=== PATIENT | female | born 1960 | race Caucasian/White ===

== ENCOUNTER 2020-03-10 15:39 | Emergency (ER) | payer OTHER, MEDICAID, SELFPAY ==
[2020-03-10 15:50] VITALS: BP 146/82; PULSE 73; RESP 18; TEMP 36.8; O2SAT 99; BMI 24.7
[2020-03-10 17:20] VITALS: BP 160/74; PULSE 58; O2SAT 100
--- NOTE | 2020-03-10 17:56 | ED_ITS ---
HPI - Headache <CONSUELO cAuna - Last Filed: 03/10/20 20:40> General Chief Complaint: Headache Stated Complaint: severe headache Time Seen by Provider: 03/10/20 17:43 Mode of arrival: Ambulatory Limitations: no limitations History of Present Illness HPI Narrative: 59yo female presents to the emergency department for a sudden onset of a severe headache during orgasm while being intimate with her partner. She states the extreme pain lasted a few minutes and then she had a dull aching headache for the next few hours. She took ibuprofen which helped relieve the pain. She denies any pain at this time, denies any other symptoms during headache such as light sensitivity, neck pain, chest pain, dizziness shortness of breath, abdominal pain, nausea, vomiting, diarrhea, or any other concerns. Patient denies any history of headaches or migraines. She denies taking any blood thinners, she denies any history of stroke or brain trauma. Patient states she takes fluoxetine. Related Data Allergies Allergy/AdvReac Type Severity Reaction Status Date / Time citalopram [CITALOPRAM] Allergy Unknown Verified 03/10/20 16:04 codeine [CODEINE] Allergy Unknown Verified 03/10/20 16:04 Sulfa (Sulfonamide Allergy Unknown Verified 03/10/20 16:04 Antibiotics) [SULFA (SULFONAMIDE ANTIBIOTICS)] Review of Systems <CONSUELO Acuna - Last Filed: 03/10/20 20:40> Review of Systems Narrative: REVIEW OF SYSTEMS: GENERAL: Denies fever or chills. HENT: No head trauma, hearing loss or sore throat. Reports headache, see HPI. EYES: No loss of vision, double vision, eye pain, or irritation. CARDIOVASCULAR: No chest pain or syncope. RESPIRATORY: No shortness of breath or cough. GASTROINTESTINAL: No nausea, vomiting, diarrhea, or constipation. GENITOURINARY: No flank pain or dysuria. MUSCULOSKELETAL: No pain, weakness, or deformities. INTEGUMENTARY: No rash. NEURO: No numbness or tingling. PSYCH: No behavior or mood changes. Patient History <CONSUELO Acuna - Last Filed: 03/10/20 20:40> Medical History No significant medical problems (Acute) Surgical History Status post myomectomy Social History Smoking Status: Never smoker Smoking Status: Never smoker alcohol intake frequency: a few times a week Alcohol type: wine Substance Use Type: does not use Exam <CONSUELO Acuna - Last Filed: 03/10/20 20:40> Initial Vital Signs Initial Vital Signs: Vital Signs Temperature 98.2 F 03/10/20 15:50 Pulse Rate 73 03/10/20 15:50 Respiratory Rate 18 03/10/20 15:50 Blood Pressure 146/82 H 03/10/20 15:50 Pulse Oximetry 99 03/10/20 15:50 PHYSICAL EXAMINATION: GENERAL: Well groomed, alert, and cooperative. Answers questions promptly and appropriately. Vital signs noted. HENT: Normocephalic. Ear canals patent. Oral mucosa is pink and moist. EYES: PERRLA, EOMIs, conjunctiva pink, sclera white, no periorbital swelling. NECK: Full ROM, no midline or spinal tenderness. CARDIOVASCULAR: S1 and S2 sounds normal. Regular rate and rhythm, no murmurs, clicks, or bruits. RESPIRATORY: Normal respiratory rate, trachea midline, airway patent. No stridor, nasal flaring or accessory muscle use. Lungs are clear in all root without wheeze, rhonchi, or crackles. MUSCULOSKELETAL: Normal gait and coordination. Equal tone and mass bilaterally. Equal strength bilaterally to upper and lower extremities. No spinal tenderness. EXTREMITIES: CMS intact. Moves all extremities. SKIN: Warm, dry, soft, appropriate color for ethnicity. No lesions, rashes, or wounds to visualized areas. NEURO: Alert and Oriented X 3. GCS: 15. Good coordination. No ataxia, or sensory deficits, or cognitive issues. Cranial Nerves: II: Visual root grossly intact. III & IV & : EOMIs V: Able to open and close jaw. VII: Facial movements symetrical. Able to close eyelids tightly. VIII: Hearing grossly intact, adequate balance. X: Uvula pronation intact. XI: Patient is able to shrug shoulders. XII: Patient is able to stick out tongue and move it side to side. PSYCH: Appropriate affect and mood. <Emmy Jefferson DO - Last Filed: 03/11/20 07:45> Initial Vital Signs Initial Vital Signs: Vital Signs Temperature 98.2 F 03/10/20 15:50 Pulse Rate 73 03/10/20 15:50 Respiratory Rate 18 03/10/20 15:50 Blood Pressure 146/82 H 03/10/20 15:50 Pulse Oximetry 99 03/10/20 15:50 Course <CONSUELO Acuna - Last Filed: 03/10/20 20:40> Course Course Narrative: Patient continues to deny head throughout her stay in the emergency department. Orders Ordered: ED Orders 03/10/20 17:54 CT head/brain wo con Stat Consultations Consultation #1: Patient staffed with Dr. Jefferson discussed test, and test results. Vital Signs Vital signs: Vital Signs - 8 hr 03/10/20 15:50 03/10/20 17:20 03/10/20 18:59 Temperature 98.2 F Pulse Rate 73 58 L 52 L Respiratory Rate 18 Blood Pressure 146/82 H 160/74 H 156/79 H Pulse Oximetry 99 100 100 <Emmy Jefferson DO - Last Filed: 03/11/20 07:45> Orders Ordered: ED Orders 03/10/20 17:54 CT head/brain wo con Stat Vital Signs Vital signs: Vital Signs - 8 hr 03/10/20 15:50 03/10/20 17:20 03/10/20 18:59 Temperature 98.2 F Pulse Rate 73 58 L 52 L Respiratory Rate 18 Blood Pressure 146/82 H 160/74 H 156/79 H Pulse Oximetry 99 100 100 MDM - Headache <CONSUELO Acuna - Last Filed: 03/10/20 20:40> Medical Records Attestation: I reviewed the patient's medical records. Lab Data Attestation: I reviewed the patient's lab results. Imaging Data CT scan - head: Radiologist's Impression: [address] [address] [address] Scan Report Signed Patient: Karley Lane [facility]#: [id number] : 1960Acct:[id number] Age/Sex: 59 / FDate of Service: 03/10/20 Loc: ED Accession Number: [id number] Procedure: CT head/brain wo con Ordering Provider: Andreea Zuleta PROCEDURE: CT HEAD/BRAIN WO CON INDICATIONS: sudden onset of headache TECHNIQUE: Noncontrast 4.5 mm thick angled axial sections acquired from the foramen magnum to the vertex, with coronal and sagittal reformats. For radiation dose reduction, the following was used: automated exposure control, adjustment of mA and/or kV according to patient size. COMPARISON: None. FINDINGS: Image quality: Excellent. CSF spaces: Basal cisterns are patent. No extra-axial fluid collections. Ventricles are normal in size and shape. Brain: No midline shift. No intracranial masses or hemorrhage. Plata-white matter interface is normal. Skull and face: Calvarium and visualized facial bones are intact, without suspicious lesions. Sinuses: Visualized sinuses and mastoids are clear. IMPRESSION: 1. No acute intracranial process. Dictated by: Sylvie Jansen M.D. on 03/10/2020 at 18:19 Approved by: Sylvie Jansen M.D. on 03/10/2020 at 18:19 [facility] Narrative Medical decision making narrative: 59-year-old female presenting to the emergency department for a headache associated with orgasm. Less concern for intracranial etiology as headache immediately started to resolve and completely to resolved by the time the patient went to the emergency department. CT negative for any concerning findings. Patient's neurological exam without focal deficits. Patient was encouraged to follow up with her primary care provider in 1-2 weeks for further evaluation. Return precautions given for new or worsening symptoms. Patient agreed to plan of care verbalized understanding. Discharge Plan Departure Patient Disposition: Home Clinical Impression: Orgasmic headache Discharge Date/Time: 03/10/20 19:03 Instructions: DI for Headache Activity Restrictions/Additional Instructions: Thank you for entrusting me with your care today. As discussed, your CT is negative for any concerning findings such as a tumor or bleeding. It is also reassuring that your headache is resolving. Please follow-up with your primary care provider in the next 1-2 weeks for further evaluation. Return to the emergency department for any new or worsening symptoms such as severe pain, vision changes, uncontrollable vomiting, chest pain, or any other concerns. Referrals: Ava Chavez MD [Primary Care Provider] - <Emmy Jefferson DO - Last Filed: 03/11/20 07:45> Cosign ED Attending Cosignature Attestation: I was immediately available in the department for consultation. Documentation has been reviewed. I agree with assessment and plan.
[2020-03-10 18:59] VITALS: BP 156/79; PULSE 52; O2SAT 100
== END 2020-03-10 19:03 | disposition home or self-care (01) ==
PROVIDERS: Emergency Provider Nurse Practitioner; PCP Family Medicine; Referring Provider Family Medicine
DX: G44.82 Headache associated with sexual activity (principal)
CPT/HCPCS: 70450; 99283; 99284

== ENCOUNTER → 2021-10-23 09:04 | Outpatient (CLI) | payer OTHER, MEDICAID, SELFPAY ==
[2021-10-23 19:52] LABS: Alanine Aminotransferase 21 IU/L (<35); Albumin 4.4 g/dL (3.5-5.0); Albumin Globulin Ratio 1.5 (1.0-2.8); Alkaline Phosphatase 53 U/L (38-126); Aspartate Aminotransferase 27 IU/L (14-36); BUN Creatinine Ratio 19.5 (6-22); Bilirubin Total 1.2 mg/dL (0.2-1.3); Blood Urea Nitrogen 16 mg/dL (7-17); Calcium 10.1 mg/dL (8.4-10.2); Carbon Dioxide 30 mmol/L (22-32); Chloride 104 mmol/L (98-107); Cholesterol 186 mg/dL (140-199); Estimated Glomerular Filt Rate > 60.0 mL/min (>60); Glucose 88 mg/dL (70-100); HDL Cholesterol 87 mg/dL (40-60); HEMOLYSIS < 15 (0-50); LDL Cholesterol Calculated 68 mg/dL (<100); Potassium 4.4 mmol/L (3.4-5.1); Sodium 140 mmol/L (137-145); Total Protein 7.4 g/dL (6.3-8.2); Triglycerides 154 mg/dL (35-150)
== END ==
PROVIDERS: PCP Physician Assistant; Visit Provider Physician Assistant
DX: E78.5 Hyperlipidemia, unspecified (principal)
CPT/HCPCS: 80053; 80061

== ENCOUNTER → 2022-12-21 10:31 | Outpatient (CLI) | payer OTHER, MEDICAID, SELFPAY ==
[2022-12-21 20:29] LABS: Alanine Aminotransferase 27 IU/L (<35); Albumin 4.4 g/dL (3.5-5.0); Albumin Globulin Ratio 1.6 (1.0-2.8); Alkaline Phosphatase 64 U/L (38-126); Aspartate Aminotransferase 25 IU/L (14-36); Bilirubin Total 1.7 mg/dL (0.2-1.3); Blood Urea Nitrogen 15 mg/dL (7-17); Calcium 9.6 mg/dL (8.4-10.2); Carbon Dioxide 29 mmol/L (22-32); Chloride 102 mmol/L (98-107); Cholesterol 197 mg/dL (140-199); Estimated Glomerular Filt Rate > 60 mL/min (>60); Globulin 2.8 g/dL (1.7-4.1); Glucose 91 mg/dL (80-110); HDL Cholesterol 82 mg/dL (40-60); HEMOLYSIS < 15 (0-50); LDL Cholesterol Calculated 76 mg/dL (<100); Potassium 4.3 mmol/L (3.4-5.1); Sodium 138 mmol/L (137-145); Total Protein 7.2 g/dL (6.3-8.2); Triglycerides 196 mg/dL (35-150)
== END ==
PROVIDERS: PCP Physician Assistant; Visit Provider Physician Assistant
DX: E78.5 Hyperlipidemia, unspecified (principal); Z79.899 Other long term (current) drug therapy
CPT/HCPCS: 80053; 80061

== ENCOUNTER → 2023-04-01 09:19 | Outpatient (CLI) | payer OTHER, MEDICAID, SELFPAY ==
[2023-04-01 19:57] LABS: Alanine Aminotransferase 22 IU/L (<35); Albumin 4.2 g/dL (3.5-5.0); Albumin Globulin Ratio 1.5 (1.0-2.8); Alkaline Phosphatase 58 U/L (38-126); Aspartate Aminotransferase 25 IU/L (14-36); BUN Creatinine Ratio 19.3 (6-22); Bilirubin Total 1.1 mg/dL (0.2-1.3); Blood Urea Nitrogen 17 mg/dL (7-17); Calcium 9.6 mg/dL (8.4-10.2); Carbon Dioxide 29 mmol/L (22-32); Chloride 104 mmol/L (98-107); Cholesterol 187 mg/dL (140-199); Estimated Glomerular Filt Rate > 60 mL/min (>60); Globulin 2.8 g/dL (1.7-4.1); Glucose 83 mg/dL (80-110); HDL Cholesterol 65 mg/dL (40-60); HEMOLYSIS < 15 (0-50); LDL Cholesterol Calculated 86 mg/dL (<100); Potassium 4.4 mmol/L (3.4-5.1); Sodium 139 mmol/L (137-145); Triglycerides 182 mg/dL (35-150)
== END ==
PROVIDERS: PCP Physician Assistant; Visit Provider Physician Assistant
DX: E78.2 Mixed hyperlipidemia (principal); R17 Unspecified jaundice
CPT/HCPCS: 80053; 80061

== ENCOUNTER → 2024-01-03 12:31 | Outpatient (CLI) | payer OTHER, MEDICAID, SELFPAY ==
[2024-01-03 19:54] LABS: Alanine Aminotransferase 21 IU/L (<35); Albumin 4.5 g/dL (3.5-5.0); Albumin Globulin Ratio 1.7 (1.0-2.8); Alkaline Phosphatase 60 U/L (38-126); Aspartate Aminotransferase 26 IU/L (14-36); BUN Creatinine Ratio 20.3 (6-22); Bilirubin Total 1.4 mg/dL (0.2-1.3); Blood Urea Nitrogen 15 mg/dL (7-17); Calcium 9.9 mg/dL (8.4-10.2); Carbon Dioxide 23 mmol/L (22-32); Chloride 108 mmol/L (98-107); Estimated Glomerular Filt Rate > 60 mL/min (>60); Globulin 2.7 g/dL (1.7-4.1); Glucose 100 mg/dL (80-110); HEMOLYSIS 16 (0-50); Potassium 4.3 mmol/L (3.4-5.1); Sodium 139 mmol/L (137-145); Total Protein 7.2 g/dL (6.3-8.2)
[2024-01-03 20:04] LABS: Add Manual Diff / Slide Review NO; Basophils Absolute Auto 0 /uL (0-100); Basophils Percent Auto 0.6 % (0-2); Eosinophils Absolute Auto 200 /uL (0-450); Eosinophils Percent Auto 2.4 % (2-4); Hematocrit 40.6 % (36-46); Hemoglobin 13.6 g/dL (12.0-16.0); Lymphocytes Absolute Auto 1600 /uL (1100-4500); Mean Corpuscular HGB Conc 33.6 % (30-36); Mean Corpuscular Hemoglobin 28.9 PG (26-34); Monocytes Absolute Auto 600 /uL (0-900); Monocytes Percent Auto 7.7 % (3-14); Neutrophils Absolute Auto 5800 /uL (1500-7000); Neutrophils Percent Auto 70.3 % (50-75); Platelet Count 286 X10^3/uL (150-400); Red Blood Cell Count 4.72 X10^6/uL (4.0-5.2); Red Cell Distribution Width 14.5 % (11.6-14.8); White Blood Cell Count 8.3 X10^3/uL (4.5-11.0)
[2024-01-03 20:20] LABS: TSH w/ Reflex to FT4 1.16 uIU/mL (0.47-4.68)
== END ==
PROVIDERS: PCP Physician Assistant; Visit Provider Physician Assistant
DX: R17 Unspecified jaundice (principal); R53.83 Other fatigue; R49.0 Dysphonia
CPT/HCPCS: 80053; 84443; 85025

== ENCOUNTER → 2024-03-23 09:21 | Outpatient (CLI) | payer OTHER, MEDICAID, SELFPAY ==
[2024-03-23 20:18] LABS: Add Manual Diff / Slide Review NO; Basophils Absolute Auto 0 /uL (0-100); Basophils Percent Auto 0.5 % (0-2); Eosinophils Absolute Auto 300 /uL (0-450); Hemoglobin 13.4 g/dL (12.0-16.0); Lymphocytes Absolute Auto 2000 /uL (1100-4500); Lymphocytes Percent Auto 23.5 % (25-40); Mean Corpuscular HGB Conc 33.5 % (30-36); Mean Corpuscular Hemoglobin 29.3 PG (26-34); Mean Corpuscular Volume 87.4 fL (80-100); Monocytes Absolute Auto 700 /uL (0-900); Monocytes Percent Auto 8.5 % (3-14); Neutrophils Absolute Auto 5400 /uL (1500-7000); Neutrophils Percent Auto 64.5 % (50-75); Platelet Count 251 X10^3/uL (150-400); Red Blood Cell Count 4.58 X10^6/uL (4.0-5.2); Red Cell Distribution Width 13.7 % (11.6-14.8); White Blood Cell Count 8.4 X10^3/uL (4.5-11.0)
[2024-03-23 20:26] LABS: Alanine Aminotransferase 19 IU/L (<35); Albumin 4.3 g/dL (3.5-5.0); Albumin Globulin Ratio 1.6 (1.0-2.8); Alkaline Phosphatase 53 U/L (38-126); Aspartate Aminotransferase 24 IU/L (14-36); Bilirubin Total 1.6 mg/dL (0.2-1.3); Blood Urea Nitrogen 20 mg/dL (7-17); Calcium 10.1 mg/dL (8.4-10.2); Carbon Dioxide 26 mmol/L (22-32); Chloride 108 mmol/L (98-107); Cholesterol 182 mg/dL (140-199); Estimated Glomerular Filt Rate > 60 mL/min (>60); Globulin 2.7 g/dL (1.7-4.1); Glucose 90 mg/dL (80-110); HDL Cholesterol 76 mg/dL (40-60); HEMOLYSIS < 15 (0-50); LDL Cholesterol Calculated 72 mg/dL (<100); Potassium 4.4 mmol/L (3.4-5.1); Sodium 140 mmol/L (137-145); Triglycerides 171 mg/dL (35-150)
[2024-03-23 21:06] LABS: TSH w/ Reflex to FT4 1.65 uIU/mL (0.47-4.68)
== END ==
PROVIDERS: PCP Physician Assistant; Referring Provider Physician Assistant; Visit Provider Physician Assistant
DX: R00.1 Bradycardia, unspecified (principal); F41.8 Other specified anxiety disorders; R53.83 Other fatigue; E78.5 Hyperlipidemia, unspecified; R17 Unspecified jaundice
CPT/HCPCS: 80053; 80061; 84443; 85025

== ENCOUNTER → 2025-04-04 10:33 | Outpatient (CLI) | payer OTHER, MEDICAID, SELFPAY ==
[2025-04-04 19:42] LABS: Add Manual Diff / Slide Review NO; Hematocrit 39.4 % (36-46); Hemoglobin 13.4 g/dL (12.0-16.0); Lymphocytes Absolute Auto 1700 /uL (1100-4500); Mean Corpuscular HGB Conc 33.9 % (30-36); Mean Corpuscular Hemoglobin 29.7 PG (26-34); Mean Corpuscular Volume 87.5 fL (80-100); Platelet Count 240 X10^3/uL (150-400)
[2025-04-04 19:49] LABS: HEMOLYSIS < 15 (0-50); Iron 101 ug/dL (37-170)
[2025-04-04 19:56] LABS: Alanine Aminotransferase 22 IU/L (<35); Albumin 4.5 g/dL (3.5-5.0); Albumin Globulin Ratio 1.7 (1.0-2.8); Alkaline Phosphatase 64 U/L (38-126); Blood Urea Nitrogen 15 mg/dL (7-17); Calcium 10.0 mg/dL (8.4-10.2); Carbon Dioxide 24 mmol/L (22-32); Chloride 104 mmol/L (98-107); Cholesterol 191 mg/dL (140-199); Estimated Glomerular Filt Rate > 60 mL/min (>60); Globulin 2.6 g/dL (1.7-4.1); Glucose 90 mg/dL (70-99); HDL Cholesterol 69 mg/dL (40-60); HEMOLYSIS < 15 (0-50); Potassium 4.3 mmol/L (3.4-5.1); Sodium 138 mmol/L (137-145); Total Protein 7.1 g/dL (6.3-8.2); Triglycerides 188 mg/dL (35-150)
[2025-04-04 20:04] LABS: Percent Iron Saturation 35 % (15-50); Total Iron Binding Capacity 285 ug/dL (265-497); Transferrin 247 mg/dL (206-381)
[2025-04-04 20:24] LABS: TSH w/ Reflex to FT4 1.64 uIU/mL (0.47-4.68)
[2025-04-04 20:44] LABS: Vitamin B12 703 pg/mL (239-931)
== END ==
PROVIDERS: PCP Physician Assistant; Visit Provider Physician Assistant
DX: R53.82 Chronic fatigue, unspecified (principal); F41.8 Other specified anxiety disorders; E78.2 Mixed hyperlipidemia; Z86.2 Personal history of diseases of the blood and blood-forming organs and certain disorders involving the immune mechanism; Z79.899 Other long term (current) drug therapy
CPT/HCPCS: 80053; 80061; 82607; 83540; 83550; 84443; 85025

== ENCOUNTER → 2025-08-13 12:40 | Outpatient (CLI) | payer OTHER, SELFPAY ==
--- NOTE | 2025-08-13 12:41 | DI.MG.S_ITS ---
MM screening mammo BI: 08/13/2025. BI-RADS: 1 CLINICAL: 64-year old female for bilateral screening mammogram. Tyrer-Cuzick lifetime risk of 7.7%. No personal or first-degree family history of breast cancer. PRIOR EXAMS 07/24/24, 07/15/23, 07/13/22. MAMMOGRAPHY TECHNIQUE: 2D and 3D (tomosynthesis) digital mammographic views obtained, with additional images as needed for full coverage. Current study was also evaluated with a Computer Aided Detection (CAD) system. DENSITY C. The breasts are heterogeneously dense, which may obscure small masses. MAMMOGRAPHY FINDINGS Bilateral: No suspicious mass, asymmetry, microcalcification, or other abnormality seen. IMPRESSION: * No evidence of malignancy. RECOMMENDATIONS Bilateral * Annual screening mammography. OVERALL ASSESSMENT CATEGORY BI-RADS-1: Negative. The [employer] recommends annual screening mammography beginning at age 40 for women with average risk of breast cancer. ELECTRONICALLY SIGNED: Stephanie Pennington M.D. on 08/13/2025 at 03:39:04 PM PT Interpreting Station ID: [id number]
--- NOTE | 2025-08-13 12:41 | DI.US.S_ITS ---
PROCEDURE: US PELVIC COMPLETE INDICATIONS: Monitoring fibroids TECHNIQUE: Real-time scanning was performed of the pelvic organs, with image documentation. Additional endovaginal scanning was necessary due to incomplete visualization of the adnexal and endometrial structures by transabdominal scanning. COMPARISON: Outside. FINDINGS: Uterus: Uterus is retroverted and normal in size at 7.2 x 3.4 x 5.5 cm. The myometrium is heterogeneous. The endometrium is not well seen. Again seen multiple uterine fibroids. Largest pain intramural fibroid measuring 3.8 x 2.3 x 3.4 cm, previously 3.4 x 3.2 x 2.3 cm. Right anterior intramural fibroid measuring 2.4 x 1.8 x 2.0 cm, previously 2.4 x 2.7 x 1.9 cm. Mid anterior intramural fibroid measuring 1.0 x 0.9 x 1.0 cm, previously 1.2 x 0.9 x 0.9 cm. Right anterior subserosal fibroid measuring 1.6 x 1.5 x 1.6 cm, previously 1.4 x 1.2 x 1.3 cm. Ovaries: The ovaries are not seen. Other: No pathologic free abdominal or pelvic fluid. IMPRESSION: Multiple uterine fibroids as described above, not significantly changed compared to prior. The endometrium is not well delineated. The ovaries are not seen. We strive to produce accurate, complete, and clear reports of imaging services. To assist us in improving patient care, this report was composed using standard report templates and voice recognition software. Therefore, it may contain abnormal punctuation, insertions and/or omissions. Occasional wrong-word or sound-alike substitutions may occur. Though we review the report and make efforts to correct it, we do recommend that the report be read carefully in proper context to recognize any text inaccuracies. Approved by: Nabor Rosa M.D. on 08/13/2025 at 15:27
--- NOTE | 2025-08-13 12:41 | DI.RAD.S_ITS ---
PROCEDURE: XR DEXA AXIAL SKELETON INDICATIONS: Bone density screening COMPARISON: None. FINDINGS: Lumbar Spine: Bone mineral density 0.689 g/cm2, T score -3.3. Left Femoral Neck: Bone mineral density 0.587 g/cm2, T score -2.4. Left Hip: Bone mineral density 0.73 g/cm2, T score -1.7 Fracture Risk Calculation (when applicable): 10-year fracture risk of a major osteoporotic fracture 12 percent (19% with prior fracture) and of a hip fracture 2.0 percent (3.5% with prior fracture). (T score greater or equal to -1.0 to: NORMAL) (T score from -1.1 to -2.4: OSTEOPENIA) (T score less than or equal to -2.5: OSTEOPOROSIS) IMPRESSION: Osteoporosis Follow-up guidelines as follows: Osteoporosis: Consider a repeat DEXA and Vertebral Fracture Assessment (VFA) exam in 2 years or sooner if medically necessary, to reassess this patient's status. Osteopenia: Consider a repeat DEXA in 2-3 years to reassess this patient's status, or if there is a new clinical indication. Normal: Consider a repeat DEXA in 5 years or sooner, or if there is a new clinical indication. All treatment decisions require clinical judgment and consideration of individual patient factors, including patient preferences, comorbidities, previous drug use, risk factors not captured in the FRAX model (e.g., frailty, falls, vitamin D deficiency, increased bone turnover, interval significant decline in bone density ) and possible under- or over-estimation of fracture risk by FRAX. In addition, the NOF Guide recommends that FDA-approved medical therapies be considered in postmenopausal women and men age >= 50 years with a: * Hip or vertebral (clinical or morphometric) fracture * T-score of <=-2.5 at the spine or hip * Ten-year fracture probability by FRAX of >= 3% for hip fracture or >=20% for major osteoporotic fracture. Approved by: Rylee Keys M.D.,Ph.D. on 08/14/2025 at 1:41
== END ==
LOC: MAMMO 12:40
PROVIDERS: PCP Physician Assistant; Referring Provider Physician Assistant; Visit Provider Physician Assistant
DX: Z12.31 Encounter for screening mammogram for malignant neoplasm of breast (principal); R92.333 Mammographic heterogeneous density, bilateral breasts; Z78.0 Asymptomatic menopausal state; D25.1 Intramural leiomyoma of uterus; D25.2 Subserosal leiomyoma of uterus
CPT/HCPCS: 76830; 76856; 77063; 77067; 77080